=== PATIENT | female | born 1975 | race Two or more races ===

== ENCOUNTER → 2018-08-27 | Outpatient (CLI) | payer OTHER, SELFPAY ==
[2018-08-27 12:41] LABS: Hematocrit 37.8 % (37-47); Mean Corp Hgb Conc 34.4 g/gl (32-36); Mean Corpuscular Hgb 29.5 pg (27.0-32.0); Mean Corpuscular Volume 85.7 fL (81-99); Mean Platelet Vol. 9.6 fl (6.2-12.0); Platelet Count 293 K/mm3 (150-450); RBC Distribution Width SD 39.8 fl (35.1-43.9); Red Blood Count 4.41 M/mm3 (4.2-5.4); White Blood Count 8.1 K/mm3 (4.4-11.0)
[2018-08-27 12:42] LABS: Scan Indicated on CBC? Y/N NO
[2018-08-27 12:58] LABS: Hemoglobin A1c 5.8 % (4.2-6.3)
[2018-08-27 13:38] LABS: Free T3 2.4 pg/mL (2.18-3.98); T4 Free Direct 1.19 ng/dL (0.76-1.46); Thyroid Stim Hormone (TSH) 1.75 uIU/mL (0.358-3.74)
[2018-08-27 13:45] LABS: hCG Titer Quant., Serum < 1 mIU/mL (1-3)
== END | disposition home or self-care (01) ==
LOC: LAB 12:19
PROVIDERS: Family Provider Family Medicine; PCP Family Medicine; Referring Provider Obstetrics & Gynecology; Visit Provider Obstetrics & Gynecology
DX: N92.6 Irregular menstruation, unspecified (principal)
CPT/HCPCS: 36415; 83036; 84439; 84443; 84481; 84702; 85027

== ENCOUNTER → 2018-08-31 | Outpatient (CLI) | payer OTHER, SELFPAY ==
--- NOTE | 2018-08-31 13:51 | BI_ITS ---
MAMMOGRAPHY - BILATERAL SCREENING REASON FOR EXAM: Female, 42 years old. Routine annual screening examination. PERTINENT HISTORY: Non-contributory. TECHNIQUE: Digital bilateral breast main (3D mammographic acquisition) in the CC and MLO projections. 2-D mediolateral oblique (MLO) and craniocaudad (CC) views of both breasts were obtained. CAD: Full Field Digital Mammography with Computer Added Detection was performed. COMPARISON: None. Baseline examination. FINDINGS: Breast Composition: The breasts are extremely dense, which lowers the sensitivity of mammography. There are no dominant masses or suspicious calcifications. No other significant abnormalities are identified. BI/SCREEN MAMM (CAD) W/MAIN BILAT IMPRESSION: Negative screening mammogram. Yearly followup mammogram recommended. (A) ASSESSMENT CATEGORY: BIRADS Category 1: Negative. A letter regarding these results will be sent to the patient by the facility within 30 days. Approximately 10% of breast cancers are not detected by mammography. A normal mammogram should not delay biopsy of a clinically suspicious abnormality. [id number] Electronically Signed: Kervin Ortega, at 8:59 EDT , Service support ,
== END | disposition home or self-care (01) ==
LOC: OPBI 13:50
PROVIDERS: Family Provider Family Medicine; PCP Family Medicine; Referring Provider Obstetrics & Gynecology; Visit Provider Obstetrics & Gynecology
DX: Z12.31 Encounter for screening mammogram for malignant neoplasm of breast (principal)
CPT/HCPCS: 77063; 77067

== ENCOUNTER → 2018-09-12 | Outpatient (CLI) | payer SELFPAY ==
--- NOTE | 2018-09-12 10:33 | US_ITS ---
STUDY: ULTRASOUND OF THE FEMALE PELVIS - COMPLETE REASON FOR EXAM: Female, 42 years old. Vaginal bleeding LMP: 09/07/2018 TECHNIQUE: Transabdominal and Transvaginal TECHNICAL QUALITY: Adequate. COMPARISON: None. FINDINGS: The uterus is anteverted and is in a midline position. The uterus measures 6.7 x 4.3 x 2.1 cm. Some fluid in the endocervical canal. The endometrium measures 3 mm in thickness, and is hyperechoic. There is no demonstrated endometrial mass. There is no demonstrated myometrial mass. I.U.D. - The patient does not have an I.U.D. The right ovary is visualized. The right ovary measures 2.1 x 1.4 x 0.9 cm. There is no right ovarian cyst or ovarian mass. There is no visualized right adnexal mass or complex lesion. There is normal arterial and normal venous vascularity. The left ovary is non-visualized.. There is no fluid in the cul-de-sac. The pre void volume of the bladder was ml. The post void volume of the bladder was ml. Polycystic ovary disease: No. US/Pelvic (Non ) IMPRESSION: Normal female pelvis. Electronically Signed: Eusebio Roberts MD at 7:59 EDT Tel , Service support ,
--- NOTE | 2018-09-12 10:44 | US_ITS ---
STUDY: ULTRASOUND OF THE FEMALE PELVIS - COMPLETE REASON FOR EXAM: Female, 42 years old. Vaginal bleeding LMP: 09/07/2018 TECHNIQUE: Transabdominal and Transvaginal TECHNICAL QUALITY: Adequate. COMPARISON: None. FINDINGS: The uterus is anteverted and is in a midline position. The uterus measures 6.7 x 4.3 x 2.1 cm. Some fluid in the endocervical canal. The endometrium measures 3 mm in thickness, and is hyperechoic. There is no demonstrated endometrial mass. There is no demonstrated myometrial mass. I.U.D. - The patient does not have an I.U.D. The right ovary is visualized. The right ovary measures 2.1 x 1.4 x 0.9 cm. There is no right ovarian cyst or ovarian mass. There is no visualized right adnexal mass or complex lesion. There is normal arterial and normal venous vascularity. The left ovary is non-visualized.. There is no fluid in the cul-de-sac. The pre void volume of the bladder was ml. The post void volume of the bladder was ml. Polycystic ovary disease: No. US/Transvaginal Non- IMPRESSION: Normal female pelvis. Electronically Signed: Eusebio Roberts MD at 7:59 EDT Tel , Service support ,
== END | disposition home or self-care (01) ==
LOC: US 10:29
PROVIDERS: Family Provider Family Medicine; PCP Family Medicine; Referring Provider Obstetrics & Gynecology; Visit Provider Obstetrics & Gynecology
DX: N93.8 Other specified abnormal uterine and vaginal bleeding (principal)
CPT/HCPCS: 76830; 76856; 93976

== ENCOUNTER → 2019-08-25 | Outpatient (CLI) | payer BC, SELFPAY ==
[2019-08-27 20:07] LABS: Age Gdln ACOG Testing 30-65 (.)
[2019-08-27 21:19] LABS: HPV APTIMA, High Risk Negative (Negative)
[2019-08-27 21:20] LABS: HPV Reflexed? YES, CHARGE PATIENT
== END | disposition home or self-care (01) ==
PROVIDERS: Referring Provider Obstetrics & Gynecology; Visit Provider Obstetrics & Gynecology
DX: Z12.4 Encounter for screening for malignant neoplasm of cervix (principal)
CPT/HCPCS: 87624; 88175; G0145

== ENCOUNTER → 2019-09-07 | Outpatient (CLI) | payer BC, SELFPAY ==
--- NOTE | 2019-09-07 13:44 | BI_ITS ---
MAMMOGRAPHY - BILATERAL SCREENING REASON FOR EXAM: Female, 43 years old. Routine annual screening examination. PERTINENT HISTORY: Non-contributory. TECHNIQUE: Digital bilateral breast main (3D mammographic acquisition) in the CC and MLO projections. 2-D mediolateral oblique (MLO) and craniocaudad (CC) views of both breasts were obtained. CAD: Full Field Digital Mammography with Computer Added Detection was performed. COMPARISON: Comparison is made with prior examination dated August 31, 2018. FINDINGS: Breast Composition: The breasts are extremely dense, which lowers the sensitivity of mammography. There are no dominant masses or suspicious calcifications. No other significant abnormalities are identified. There has been no significant change since the prior study. BI/SCREEN MAMM (CAD) W/MAIN BILAT IMPRESSION: Stable bilateral screening mammogram. Yearly follow-up mammogram recommended. (A) ASSESSMENT CATEGORY: BIRADS Category 1: Negative. A letter regarding these results will be sent to the patient by the facility within 30 days. Approximately 10% of breast cancers are not detected by mammography. A normal mammogram should not delay biopsy of a clinically suspicious abnormality. [id number] Electronically Signed: Kervin Ortega, at 15:01 EDT , Service support ,
== END | disposition home or self-care (01) ==
LOC: OPBI 13:42
PROVIDERS: Referring Provider Obstetrics & Gynecology; Visit Provider Obstetrics & Gynecology
DX: Z12.31 Encounter for screening mammogram for malignant neoplasm of breast (principal)
CPT/HCPCS: 77063; 77067

== ENCOUNTER → 2020-04-07 | Outpatient (CLI) | payer OTHER, SELFPAY ==
--- NOTE | 2020-04-07 | LES_PTH ---
PATIENT: MADELINE LANDERS LOC: [facility] U#:[id number] AGE/SX: 44/F ROOM: RE04/07/[address]: Dr. Kaley Dunaway MD : 1975 BED: DIS: 04/07/2020 SPEC #: [id number] RECD: 04/07/20 17:34 STATUS: GULSHAN ISIDRO #: [id number] GENNARO: 04/07/20 00:[address]: Kaley Dunaway DEPT: SURGICAL PATHOLOGY RECD BY: Sandip Roberts Tissues: Skin of eyelid, NOS Procedures: Surgery Specimen Level IV HEADER OPERATION: Shave biopsy PRE-OP DIAGNOSIS: Growing lesions TISSUE SUBMITTED: 5 mm shave biopsy right postauricular area MICROSCOPIC DIAGNOSIS Skin lesion, right postauricular area, shave biopsy: Polypoid intradermal nevus. AM:ellen 04/11/2020 MICROSCOPIC DESCRIPTION Slides are reviewed. GROSS DESCRIPTION Received is one container labeled with the patient's name and not further designated. The specimen consists of a polypoid piece of wheeler-white skin measuring 0.8 x 0.5 x 0.4 cm. The specimen is inked, bisected and submitted entirely in one cassette. / SJ:ellen 04/10/20 TC:5 CPT: 91298
== END | disposition home or self-care (01) ==
LOC: LABSPEC 14:12
PROVIDERS: PCP Family Medicine; Visit Provider Family Medicine
DX: L98.9 Disorder of the skin and subcutaneous tissue, unspecified (principal)
CPT/HCPCS: 88305

== ENCOUNTER → 2020-09-12 13:43 | Outpatient (CLI) | payer OTHER, SELFPAY ==
--- NOTE | 2020-09-12 13:46 | BI_ITS ---
MAMMOGRAPHY - BILATERAL SCREENING REASON FOR EXAM: Female, 44 years old. Routine annual screening examination. PERTINENT HISTORY: Non-contributory. TECHNIQUE: Digital bilateral breast main (3D mammographic acquisition) in the CC and MLO projections. 2-D mediolateral oblique (MLO) and craniocaudad (CC) views of both breasts were obtained. CAD: Full Field Digital Mammography with Computer Added Detection was performed. COMPARISON: Comparison is made with prior study dated 09/07/2019 and 08/31/2018. FINDINGS: Breast Composition: The breasts are extremely dense, which lowers the sensitivity of mammography. There are no dominant masses or suspicious calcifications. No other significant abnormalities are identified. There has been no significant change since the prior study. BI/SCRN MAMM (CAD)W/MAIN BILAT IMPRESSION: Stable bilateral screening mammogram. Yearly follow-up mammogram recommended. (A) ASSESSMENT CATEGORY: BIRADS Category 1: Negative. A letter regarding these results will be sent to the patient by the facility within 30 days. Approximately 10% of breast cancers are not detected by mammography. A normal mammogram should not delay biopsy of a clinically suspicious abnormality. [id number] Electronically Signed: Kervin Ortega MD at 14:42 EDT , Service support ,
== END ==
PROVIDERS: PCP Family Medicine; Referring Provider Student in an Organized Health Care Education/Training Program; Visit Provider Student in an Organized Health Care Education/Training Program
DX: Z12.31 Encounter for screening mammogram for malignant neoplasm of breast (principal)
CPT/HCPCS: 77063; 77067

== ENCOUNTER → 2021-02-03 07:06 | Outpatient (CLI) | payer OTHER, SELFPAY ==
[2021-02-03 08:16] LABS: Cholesterol 162 mg/dL (200); Glucose 91 mg/dL (74-106); High Density Lipoprotein 61 mg/dL; Thyroid Stim Hormone (TSH) 2.05 uIU/mL (0.358-3.74); Triglycerides 81 mg/dL; Very Low Density Lipoprotein 16 mg/dL (5-40)
== END ==
PROVIDERS: PCP Family Medicine; Referring Provider Family Medicine; Visit Provider Family Medicine
DX: Z00.00 Encounter for general adult medical examination without abnormal findings (principal); R53.83 Other fatigue
CPT/HCPCS: 36415; 80061; 82947; 84443

== ENCOUNTER 2021-04-30 18:25 | Outpatient (CLI) | payer OTHER, SELFPAY | END 2021-04-30 23:59 | disposition short-term general hospital (02) | PROVIDERS: PCP Family Medicine; Referring Provider Family Medicine; Visit Provider Family Medicine | DX: Z20.822 Contact with and (suspected) exposure to COVID-19 (principal) | CPT/HCPCS: 87635; U0003; U0005 ==

== ENCOUNTER → 2021-09-19 | Outpatient (CLI) | payer OTHER, SELFPAY ==
--- NOTE | 2021-09-19 15:09 | BI_ITS ---
MAMMOGRAPHY - BILATERAL SCREENING REASON FOR EXAM: Female, 45 years old. Routine annual screening examination. PERTINENT HISTORY: Non-contributory. TECHNIQUE: Digital bilateral breast main (3D mammographic acquisition) in the CC and MLO projections. 2-D mediolateral oblique (MLO) and craniocaudad (CC) views of both breasts were obtained. CAD: Full Field Digital Mammography with Computer Added Detection was performed. COMPARISON: Comparison with mammogram from 09/12/2020, 09/07/2019, 08/31/2018. FINDINGS: Breast Composition: The breasts are extremely dense, which lowers the sensitivity of mammography. There are no dominant masses or suspicious calcifications. No other significant abnormalities are identified. There has been no significant change since the prior study. BI/SCRN MAMM (CAD)W/MAIN BILAT IMPRESSION: Stable bilateral screening mammogram. Yearly follow-up mammogram recommended. (A) ASSESSMENT CATEGORY: BIRADS Category 1: Negative. A letter regarding these results will be sent to the patient by the facility within 30 days. Approximately 10% of breast cancers are not detected by mammography. A normal mammogram should not delay biopsy of a clinically suspicious abnormality. [id number] Electronically Signed: Anival Miguel, at 11:03 EDT ,
== END | disposition home or self-care (01) ==
LOC: OPBI 15:07
PROVIDERS: PCP Family Medicine; Visit Provider Student in an Organized Health Care Education/Training Program
DX: Z12.31 Encounter for screening mammogram for malignant neoplasm of breast (principal)
CPT/HCPCS: 77063; 77067

== ENCOUNTER → 2022-09-24 | Outpatient (CLI) | payer OTHER, SELFPAY ==
--- NOTE | 2022-09-24 16:00 | BI_ITS ---
MAMMOGRAPHY - BILATERAL SCREENING REASON FOR EXAM: Female, 46 years old. Routine annual screening examination. PERTINENT HISTORY: Non-contributory. TECHNIQUE: Digital bilateral breast main (3D mammographic acquisition) in the CC and MLO projections. 2-D mediolateral oblique (MLO) and craniocaudad (CC) views of both breasts were obtained. CAD: Full Field Digital Mammography with Computer Added Detection was performed. COMPARISON: Comparison is made with prior study September 19, 2021 and September 12, 2020. FINDINGS: Breast Composition: The breasts are extremely dense, which lowers the sensitivity of mammography. There are no dominant masses or suspicious calcifications. No other significant abnormalities are identified. There has been no significant change since the prior study. BI/SCRN MAMM (CAD)W/MAIN BILAT IMPRESSION: Stable bilateral screening mammogram. Yearly follow-up mammogram recommended. (A) ASSESSMENT CATEGORY: BIRADS Category 1: Negative. A letter regarding these results will be sent to the patient by the facility within 30 days. Approximately 10% of breast cancers are not detected by mammography. A normal mammogram should not delay biopsy of a clinically suspicious abnormality. [id number] Electronically Signed: Kervin Ortega MD at 8:34 EDT ,
== END | disposition home or self-care (01) ==
LOC: OPBI 15:58
PROVIDERS: PCP Family Medicine; Referring Provider Student in an Organized Health Care Education/Training Program; Visit Provider Student in an Organized Health Care Education/Training Program
DX: Z12.31 Encounter for screening mammogram for malignant neoplasm of breast (principal)
CPT/HCPCS: 77063; 77067

== ENCOUNTER 2023-04-14 05:51 | Day surgery (SDC) | payer OTHER, SELFPAY ==
--- OUTSIDE RECORDS SUMMARY | 2023-04-14 06:00 | XMS RPT_ITS | CCD ---
Author Name Unknown Address [address] [place] [address] Organization [facility] Care Team Providers Care Day Care Worker Name Role Phone KALEY DUNAWAY Primary Care Unavailable MECCA KLINE Attending Unavaila Kaley Don Primary Care Provider Unavailab KALEY Dasilva Primary Care Unavailable DIANE GOINS Attending Unavaillilly e Medications Current Medications Medication Drug Class(es) Dates Sig (Normalized) Sig (Original) 21 day ethinyl estradiol 0.501949 mg/hr / etonogestrel 0.005 mg/hr vaginal ring (2 sources) Progestin, Estrogen Start: 07-15-2019 etonogestreL-ethi nyl estradioL (NUVARING) 0.12-0.015 mg/24 hr vaginal ring INSERT 1 RING VAGINALLY FOR 21 DAYS OUT FOR 7 AND REPEAT 0 07/15/2019 Active Ethinyl Estradiol / Ferrous fumarate / Norethindrone (2 sources) Estrogen take 1 tablet by mouth once daily norethindrone-eth inyl estradiol-ferrous fumarate (LOESTIN 24 FE) 1 mg-20 mcg (24)/75 mg (4) per tablet Take 1 tablet by mouth daily. 0 Active montelukast 10 mg oral tablet (2 sources) Leukotriene Receptor Antagonist Start: 07-26-2019 take 1 tablet by mouth once daily montelukast (SINGULAIR) 10 mg tablet Take 10 mg by mouth daily . 0 07/26/2019 Active Completed/Discontinued Medications Medication Drug Class(es) Dates Sig (Normalized) Sig (Original) Sodium Chloride (1 source) Start: 08-13-2019 End: 08-13-2019 sodium chloride (PF) (NS) flush 5 mL Problems Problem Classification Problem Date Documented Da te Episodic/Chronic Abdominal pain (3 sources) Right lower quadrant pain; Translations: [Generalized abdominal pain] Episodic Nausea and vomiting (1 source) Nausea; Translations: [Nausea] Episodic Other gastrointestinal disorders (1 source) Abdominal bloating; Translations: [Bloated abdomen] Episodic Results Test Name Value Interpretation Reference Range Facil ity Vital Signs Date Time Vital Sign Value Performing Clinician Yung murphy 08-13-2019 17:51-0400 BP Diastolic 65 mm[Hg] Dianerusty Goins 08-13-2019 17:51-0400 BP Systolic 132 mm[Hg] Diane Goins 08-13-2019 17:51-0400 Pulse (Heart Rate) 74 /min Diane Goins 08-13-2019 17:51-0400 Pulse Oximetry 99 % Dianerusty Goins 08-13-2019 17:51-0400 Respiratory Rate 14 /min Dianerusty Goins 08-13-2019 15:48-0400 BMI (Body Mass Index) 22.6 kg/m2 Dianerusty Goins 08-13-2019 15:48-0400 Body Temperature 99.39 [degF] Dianerusty Goins 08-13-2019 15:48-0400 Body weight 63.5 kg Dianerusty Goins 08-13-2019 15:48-0400 Height 167.6 cm Dianerusty Goins 08-13-2019 14:40-0400 BMI (Body Mass Index) 22.6 kg/m2 Meccamisael Kline [facility] 08-13-2019 14:40-0400 Body Temperature 99.39 [degF] Mecca [facility] 08-13-2019 14:40-0400 Body weight 63.5 kg Mecca [facility] 08-13-2019 14:40-0400 Height 167.6 cm [facility] 08-13-2019 14:40-0400 Pulse (Heart Rate) 98 /min [facility] 08-13-2019 14:40-0400 Pulse Oximetry 98 % [facility] 08-13-2019 14:40-0400 Respiratory Rate 16 /min [facility] Encounters Encounter Date Encounter Type Care Provider Facility Start: 08-13-2019 End: 08-13-2019 Emergency department patient visit [facility] Start: 08-13-2019 End: 08-13-2019 Patient encounter procedure [facility] Start: 08-13-2019 End: 08-13-2019 Emergency department patient visit Diane Marin Goins Work Phone: [facility] Emergency Department Procedures Date Procedure Procedure Detail Performing Clinician Start: 08-13-2019 Basic metabolic 2000 panel - Serum or Plasma Work Phone: Start: 08-13-2019 Choriogonadotropin.b eta subunit ( test) [Presence] in Serum or Plasma Work Phone: Start: 08-13-2019 Complete blood count with white cell differential, automated Work Phone: Start: 08-13-2019 Complete blood count with white cell differential, manual Work Phone: Start: 08-13-2019 Hepatic function 200 0 panel - Serum or Plasma Work Phone: Start: 08-13-2019 LAVENDER TOP Diane Gorman Goins Work Phone: Start: 08-13-2019 LIGHT BLUE TOP Diane Tomas Goins Work Phone: Start: 08-13-2019 Lipase [Enzymatic activity/volume] in Serum or Plasma Work Phone: Start: 08-13-2019 MINT GREEN TOP Diane Tomas Goins Work Phone: Start: 08-13-2019 RAINBOW DRAW Diane Mcgregor Work Phone: Start: 08-13-2019 Urinalysis Work Phone: Start: 08-13-2019 URINE CONTAINER Diane Tomas Goins Work Phone: Plan of Treatment Date Care Activity Detail Author Start: 11-30-2019 Influenza vaccination given Se quential Influenza Vaccine (Season Ended) Start: 1980 History and physical examination, annual for health maintenance Wellness Visit Start: 1977 Screening for malign ant neoplasm of cervix Pap Smear Start: 1977 Screening mammography [facility] Start: 1977 Tetanus vaccination Tetanus: Every [address] Abdomen Pelvis Wi th IV Contrast Only CT Abdomen Pelvis With IV Contrast Only Imaging [facility] 08/13/2019 5:25 PM EDT Payers Date Payer Category Payer Unknown [id number] 2018 Unknown JOJO BCBS OUT OF STATE [facility] xxxxxxxxxxxx 2018-Present xxxxxxxxxxxx [id number] 1975 Unknown [id number] 1975 Unknown [id number] Social History Date Type Detail Facility Start: 08-13-2019 Tobacco smoking status NHIS Never sm oker Start: 08-13-2019 Alcohol intake Current drinke r of alcohol (finding) Start: 07-19-2016 Alcohol Comment occassional [facility] Sex Assigned At Not on file [facility] Exposure to SARS-CoV -2 (event) Not sure Summary Purpose Family History No Family History Records FoundNo Family History Records Found Advance Directives No Advanced Directives Records FoundDocuments on File Type Date 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 * Abdominal Pain (Citizen Of [place]) documented in this encounter Assessments Diagnosis RLQ abdominal pain Abdominal pain, right lower quadrant Diagnosis Generalized abdominal pain Abdominal pain, generalized Abdominal pain, RLQ Nausea Nausea alone Bloated abdomen Flatulence, eructation, and gas pain Instructions * Patient Instructions* Mecca Kline PA-C - 08/13/2019 3:13 PM EDT Madeline, Go straight to the Main [facility] ED in [place]; Nothing to eat or drink prior to arrival. Although you are stable to drive yourself to the ED at this time, any worsening symptoms, pull overto the side of the road in a safe area and dial 911. Abdominal Pain: Care Instructions Your Care Instructions Abdominal pain has many possible causes. Some aren't serious and get better on their own in a few days. Others need more testing and treatment. If your pain continues or gets worse, you need to be rechecked and may need more tests to find out what is wrong. You may need surgery to correct the problem. Don't ignore new symptoms, such as fever, nausea and vomiting, urination problems, pain that gets worse, and dizziness. These may be signs of a more serious problem. Your doctor may have recommended a follow-up visit in the next 8 to 12 hours. If you are not getting better, you may need more tests or treatment. The doctor has checked you carefully, but problems can develop later. If you notice any problems ornew symptoms, get medical treatment right away. Follow-up care is a dumont part of your treatment and safety. Be sure to make and go to all appointments, and call your doctor if you are having problems. It's also a good idea to know your test resultsand keep a list of the medicines you take. How can you care for yourself at home? Rest until you feel better. To prevent dehydration, drink plenty of fluids, enough so that your urine is light yellow or clear like water. Choose water and other caffeine-free clear liquids until you feel better. If you have kidney, heart, or liver disease and have to limit fluids, talk with your doctor before you increase the amount of fluids you drink. If your stomach is upset, eat mild foods, such as rice, dry toast or crackers, bananas, and applesauce. Try eating several small meals instead of two or three large ones. Wait until 48 hours after all symptoms have gone away before you have spicy foods, alcohol, and drinks that contain caffeine. Do not eat foods that are high in fat. Avoid anti-inflammatory medicines such as aspirin, ibuprofen (Advil, Motrin), and naproxen (Aleve).These can cause stomach upset. Talk to your doctor if you take daily aspirin for another health problem. When should you call for help? Call 911 anytime you think you may need emergency care. For example, call if: You passed out (lost consciousness). You pass maroon or very bloody stools. You vomit blood or what looks like coffee grounds. You have new, severe belly pain. Call your doctor now or seek immediate medical care if: Your pain gets worse, especially if it becomes focused in one area of your belly. You have a new or higher fever. Your stools are black and look like tar, or they have streaks of blood. You have unexpected vaginal bleeding. You have symptoms of a urinary tract infection. These may include: ? Pain when you urinate. ? Urinating more often than usual. ? Blood in your urine. You are dizzy or lightheaded, or you feel like you may faint. Watch closely for changes in your health, and be sure to contact your doctor if: You are not getting better after 1 day (24 hours). Where can you learn more? Log into your personal health record on https://eyeSight [employer]Mobilygen and enter E907 in the Education box to learn more about Abdominal Pain: Care Instructions. Current as of: September 23, 2018 Content Version: 12.3 7662-1767 Register My Info. Care instructions adapted under license by your healthcare professional. If you have questions about a medical condition or this instruction, always ask your healthcare professional. Register My Info disclaims any warranty or liability for your use of this information. documented in this encounter History of Present Illness * Mecca Kline PA-C - 08/13/2019 2:47 PM EDT Patient Name: Urgent Care Location: Madeline Granado [address] [place] [id number] Date Of : Date Of Visit: 1975 08/13/2019 MRN# Provider: [id number] Mecca Kline PA-C Chief Complaint Patient presents with Abdominal Pain cramping abdominal pain / lower cramping with constipation... cramping worse after eating Assessment & Plan 1. Generalized abdominal pain 2. Abdominal pain, RLQ 3. Nausea 4. Bloated abdomen Return if symptoms worsen or fail to improve. Medical Decision Making Abd pain, nausea, RLQ abd pain, temp of 99.5; Pt's abd is distended, diffuse tender from umbilicus down and has rebound; appears to be poss appy.Distention mid abd ? Bowel, ovary, other etiology; no hx of bowel obstruction; she has no abd psh. Pt needs higher level of care -- sent to [facility] for further eval and care. Urgent Care Brief Evaluation Form Patient Transfer to ED without Admit to Urgent Care Date: 08/13/19 Time: 3:19 PM Name: Madeline Granado : 1975 [id number] - (Managed Care) [address] [place] [address] (home) Madeline Granado [facility] with Abdominal Pain (cramping abdominal pain / lower cramping with constipation... cramping worse after eating ) . Pulse 98 Temp 99.4 F (37.4 C) Resp 16 Ht 5' 6 Wt 63.5 kg (140 lb) LMP 07/25/2019 (Approximate) SpO2 98% BMI 22.60 kg/m Allergies: no known allergies. Madeline Granado has a current medication list which includes the following prescription(s): etonogestrel-ethinyl estradiol, montelukast, and norethindrone- ethinyl estradiol-ferrous fumarate. Madeline Granado has a past medical history of Asthma. Madeline Granado was seen by Mecca Kline PA-C and is being transferred to [facility] Madeline Granado being transported via [employer] (Self). The primary encounter diagnosis was Generalized abdominal pain. Diagnoses of Abdominal pain, RLQ, Nausea, and Bloated abdomen were also pertinent to this visit. Discussion Regarding Transfer: yes Transfer Center Called; yes ED Called; no Additional Comments: nontraumatic abd pain, abd distension, rlq rebound, temp of 99.5; sent for higher level of care to [facility]. Mecca Kline PA-C 08/13/19 Additional Clinical Comments ED Transfer - Recommended further evaluation and treatment at the emergency room. Discussed personal transport vs EMS. [facility] COVID-19 Mask Status: Does the patient have classic COVID-19 symptoms? No, the patient does not have COVID-19 symptoms, the patient WAS wearing a mask during the visit and I (the provider) WAS wearing a mask during the visit. The provider was wearing gloves during visit. Subjective 43 y.o. female presents with Abdominal Pain (cramping abdominal pain / lower cramping with constipation... cramping worse after eating ) The pt presents with c/o 5 days of noted pain funky ; had popcorn, then started feeling nauseated.Pt had ground [place] with onions potatoes milk before onset of symptoms on Friday. This lasted fri-Friday. No emesis.Took excedrin migraine, headache, nausea went away; had abd cramping periodically through Friday afternoon. Friday morning, every time she eats lower pelvic/abd cramps. Now it is R lower abd; There is some radiation to side of abd, not back. No abd PSH. No abnl vag dc or bleeding. Pt admits to feeling constipated for a week, small bms, not big ones. Not eating as usual over past week. No abd/ pelvic hx. Pt is one partner, male; no painful intercourse. No std/sti hx---- does, pt does not know what this is. 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 NO KNOWN EXP TO SUSP OR POS COVID IN PAST 14 DAYS. NO SOB, DOC TEMP, ETC. Abdominal Pain This is a new problem. The current episode started in the past 7 days. The onset quality is gradual. The problem occurs constantly. The problem has been gradually worsening. The pain is located in the generalized abdominal region and RLQ. The pain is at a severity of 6/10. The pain is moderate. Thequality of the pain is cramping. Associated symptoms include constipation. Pertinent negatives include no anorexia, arthralgias, belching, diarrhea, dysuria, fever, flatus, frequency, headaches, hematochezia, hematuria, melena, myalgias, nausea, vomiting or weight loss. The pain is aggravated by eating. The pain is relieved by nothing. She has tried nothing for the symptoms. The treatment provided no relief. Prior workup: none. There is no history of abdominal surgery, colon cancer, Crohn's disease, gallstones, GERD, irritable bowel syndrome, pancreatitis, PUD or ulcerative colitis. Review Of Systems Review of Systems Constitutional: Positive for appetite change. Negative for activity change, chills, diaphoresis, fatigue, fever, unexpected weight change and weight loss. HENT: Negative for congestion, dental problem, drooling, ear discharge, ear pain, facial swelling, hearing loss, mouth sores, nosebleeds, postnasal drip, rhinorrhea, sinus pressure, sinus pain, sneezing, sore throat, tinnitus, trouble swallowing and voice change. Eyes: Negative for photophobia, pain, discharge, redness and visual disturbance. Respiratory: Negative for cough, choking, chest tightness, shortness of breath, wheezing and stridor. Cardiovascular: Negative for chest pain, palpitations and leg swelling. Gastrointestinal: Positive for abdominal pain and constipation. Negative for abdominal distention, anorexia, blood in stool, diarrhea, flatus, hematochezia, melena, nausea and vomiting. Genitourinary: Negative for decreased urine volume, difficulty urinating, dysuria, flank pain, frequency, genital sores, hematuria, menstrual problem, pelvic pain, vaginal bleeding, vaginal dischargeand vaginal pain. Musculoskeletal: Negative for arthralgias, back pain, gait problem, joint swelling, myalgias, neck pain and neck stiffness. Skin: Negative for rash. Neurological: Negative for dizziness, seizures, syncope, speech difficulty, weakness, light-headedness, numbness and headaches. Hematological: Negative for adenopathy. Does not bruise/bleed easily. Medical History Past Medical History: Diagnosis Date Asthma There is no problem list on file for this patient. Social History Social History Socioeconomic History Marital status: Spouse name: Not on file Number of children: Not on file Years of education: Not on file Highest education level: Not on file Occupational History Not on file Social Needs Financial resource strain: Not on file Food insecurity Worry: Not on file Inability: Not on file Transportation needs Medical: Not on file Non-medical: Not on file Tobacco Use Smoking status: Never Smoker Smokeless tobacco: Never Used Substance and Sexual Activity Alcohol use: Yes Comment: occassional Drug use: No Sexual activity: Not on file Lifestyle Physical activity Days per week: Not on file Minutes per session: Not on file Stress: Not on file Relationships Social connections Talks on phone: Not on file Gets together: Not on file Attends moravian service: Not on file Active member of club or organization: Not on file Attends meetings of clubs or organizations: Not on file Relationship status: Not on file Other Topics Concern Not on file Social History Narrative Not on file Family History History reviewed. No pertinent family history. Objective Physical Exam Pulse 98 Temp 99.4 F (37.4 C) Resp 16 Ht 5' 6 Wt 63.5 kg (140 lb) LMP 07/25/2019 (Approximate) SpO2 98% BMI 22.60 kg/m Vision/Hearing Exam:No exam data present Physical Exam Vitals signs and nursing note reviewed. Exam conducted with a power originator present. Constitutional: General: She is not in acute distress. Appearance: Normal appearance. She is not ill-appearing, toxic-appearing or diaphoretic. HENT: Head: Normocephalic and atraumatic. Nose: Nose normal. Mouth/Throat: Mouth: Mucous membranes are moist. Comments: The patient handles her own oral secretions well; no drooling, tripoding, stridor, trismus, speech dyspnea, painful or abnormal respirations. Uvula and tongue are midline without edema. Lips and fingertips acyanotic. No evidence of tons abscess or ludwigs angina. slpac Eyes: General: No scleral icterus. Right eye: No discharge. Extraocular Movements: Extraocular movements intact. Conjunctiva/sclera: Conjunctivae normal. Neck: Musculoskeletal: No neck rigidity or muscular tenderness. Cardiovascular: Rate and Rhythm: Normal rate and regular rhythm. Pulses: Normal pulses. Heart sounds: Normal heart sounds. No murmur. No friction rub. No gallop. Pulmonary: Effort: Pulmonary effort is normal. No respiratory distress. Breath sounds: Normal breath sounds. No stridor. No wheezing, rhonchi or rales. Abdominal: General: There is distension. Palpations: Abdomen is soft. Tenderness: There is abdominal tenderness. There is guarding. There is no right CVA tenderness or left CVA tenderness. Comments: Decreased bowel sounds, difficult to hear despite multiple attempts. ? Distention vs mass; needs higher level of care. + fmhx of kidney stone--dad; no pmh of nephrolithiasis. Musculoskeletal: General: No swelling, tenderness, deformity or signs of injury. Right lower leg: No edema. Left lower leg: No edema. Lymphadenopathy: Cervical: No cervical adenopathy. Skin: General: Skin is warm and dry. Capillary Refill: Capillary refill takes 2 to 3 seconds. Coloration: Skin is not jaundiced or pale. Findings: No bruising, erythema, lesion or rash. Neurological: General: No focal deficit present. Mental Status: She is alert and oriented to person, place, and time. Mental status is at baseline. Cranial Nerves: No cranial nerve deficit. Motor: No weakness. Coordination: Coordination normal. Psychiatric: Mood and Affect: Mood normal. Behavior: Behavior normal. Thought Content: Thought content normal. Judgment: Judgment normal. Procedure Notes Procedures Results No results found for this or any previous visit (from the past 168 hour(s)). No orders to display Orders Placed This Visit No orders of the defined types were placed in this encounter. Medication List At End Of Visit Current Outpatient Medications Medication Sig Dispense Refill etonogestreL-ethinyl estradioL (NUVARING) 0.12-0.015 mg/24 hr vaginal ring INSERT 1 RING VAGINALLY FOR 21 DAYS OUT FOR 7 AND REPEAT montelukast (SINGULAIR) 10 mg tablet Take 10 mg by mouth daily . norethindrone-ethinyl estradiol-ferrous fumarate (LOESTIN 24 FE) 1 mg-20 mcg (24)/75 mg (4) per tablet Take 1 tablet by mouth daily. No current facility-administered medications for this visit. Patient Instructions Madeline, Go straight to the [facility] ED in [place]; Nothing to eat or drink prior to arrival. Although you are stable to drive yourself to the ED at this time, any worsening symptoms, pull overto the side of the road in a safe area and dial 911. Abdominal Pain: Care Instructions Your Care Instructions Abdominal pain has many possible causes. Some aren't serious and get better on their own in a few days. Others need more testing and treatment. If your pain continues or gets worse, you need to be rechecked and may need more tests to find out what is wrong. You may need surgery to correct the problem. Don't ignore new symptoms, such as fever, nausea and vomiting, urination problems, pain that gets worse, and dizziness. These may be signs of a more serious problem. Your doctor may have recommended a follow-up visit in the next 8 to 12 hours. If you are not getting better, you may need more tests or treatment. The doctor has checked you carefully, but problems can develop later. If you notice any problems ornew symptoms, get medical treatment right away. Follow-up care is a dumont part of your treatment and safety. Be sure to make and go to all appointments, and call your doctor if you are having problems. It's also a good idea to know your test resultsand keep a list of the medicines you take. How can you care for yourself at home? Rest until you feel better. To prevent dehydration, drink plenty of fluids, enough so that your urine is light yellow or clear like water. Choose water and other caffeine-free clear liquids until you feel better. If you have kidney, heart, or liver disease and have to limit fluids, talk with your doctor before you increase the amount of fluids you drink. If your stomach is upset, eat mild foods, such as rice, dry toast or crackers, bananas, and applesauce. Try eating several small meals instead of two or three large ones. Wait until 48 hours after all symptoms have gone away before you have spicy foods, alcohol, and drinks that contain caffeine. Do not eat foods that are high in fat. Avoid anti-inflammatory medicines such as aspirin, ibuprofen (Advil, Motrin), and naproxen (Aleve).These can cause stomach upset. Talk to your doctor if you take daily aspirin for another health problem. When should you call for help? Call 911 anytime you think you may need emergency care. For example, call if: You passed out (lost consciousness). You pass maroon or very bloody stools. You vomit blood or what looks like coffee grounds. You have new, severe belly pain. Call your doctor now or seek immediate medical care if: Your pain gets worse, especially if it becomes focused in one area of your belly. You have a new or higher fever. Your stools are black and look like tar, or they have streaks of blood. You have unexpected vaginal bleeding. You have symptoms of a urinary tract infection. These may include: ? Pain when you urinate. ? Urinating more often than usual. ? Blood in your urine. You are dizzy or lightheaded, or you feel like you may faint. Watch closely for changes in your health, and be sure to contact your doctor if: You are not getting better after 1 day (24 hours). Where can you learn more? Log into your personal health record on https://eyeSight Mobile [email or web address] and enter E907 in the Education box to learn more about Abdominal Pain: Care Instructions. Current as of: September 23, 2018 Content Version: 12.3 1229-1464 Register My Info. Care instructions adapted under license by your healthcare professional. If you have questions about a medical condition or this instruction, always ask your healthcare professional. Register My Info disclaims any warranty or liability for your use of this information. documented in this encounter Additional Source Comments INFORMATION SOURCE (unrecogn ized section and content) DATE CREATED AUTHOR AUTHOR'S ORGANIZ ATION [facility] Reason for Visit (unrecogniz ed section and content) Reason Comments Abdominal Pain cramping abdominal p ain / lower cramping with constipation... cramping worse after eating Day, MISHA Kan - 08/13/2019 5:11 PM EDCy Tran RN - 08/13/2019 4:10 PM Cy Pierre RN - 08/13/2019 3:50 PM Cy Pierre RN - 08/13/2019 3:45 PM EDT ED Notes (unrecognized secti on and content) ED PROVIDER NOTE [facility] EMERGENCY DEPARTMENT NAME: Madeline Granado AGE: 43 y.o. : 1975 VISIT DATE: 08/13/2019 CSN: [id number] PCP: Kaley Dunaway MD Chief Complaint Patient presents with Abdominal Pain 5 DAYS Nausea Patient c/o lower pelvic pain for about 1 week On/off RLQ Some nausea No vomiting No fever/chills Some constipation No urinary s.sx No vaginal d/c or concern for History provided by: Patient Abdominal Pain Past Medical History: Diagnosis Date Asthma No past surgical history on file. No family history on file. Social History Socioeconomic History Marital status: Spouse name: Not on file Number of children: Not on file Years of education: Not on file Highest education level: Not on file Occupational History Not on file Social Needs Financial resource strain: Not on file Food insecurity Worry: Not on file Inability: Not on file Transportation needs Medical: Not on file Non-medical: Not on file Tobacco Use Smoking status: Never Smoker Smokeless tobacco: Never Used Substance and Sexual Activity Alcohol use: Yes Comment: occassional Drug use: No Sexual activity: Not on file Lifestyle Physical activity Days per week: Not on file Minutes per session: Not on file Stress: Not on file Relationships Social connections Talks on phone: Not on file Gets together: Not on file Attends moravian service: Not on file Active member of club or organization: Not on file Attends meetings of clubs or organizations: Not on file Relationship status: Not on file Other Topics Concern Not on file Social History Narrative Not on file Previous Medications Medication Sig etonogestreL-ethinyl estradioL (NUVARING) 0.12-0.015 mg/24 hr vaginal ring INSERT 1 RING VAGINALLY FOR 21 DAYS OUT FOR 7 AND REPEAT montelukast (SINGULAIR) 10 mg tablet Take 10 mg by mouth daily . norethindrone-ethinyl estradiol-ferrous fumarate (LOESTIN 24 FE) 1 mg-20 mcg (24)/75 mg (4) per tablet Take 1 tablet by mouth daily. No Known Allergies Review of Systems Gastrointestinal: Positive for abdominal pain. All other systems reviewed and are negative. Patient Vitals for the past 24 hrs: BP Temp Temp src Pulse Resp SpO2 Height Weight 08/13/19 1551 82 08/13/19 1548 (!) 166/82 99.4 F (37.4 C) Oral 98 16 98 % 5' 6 63.5 kg (140 lb) Physical Exam Vitals signs and nursing note reviewed. Constitutional: Appearance: She is normal weight. HENT: Head: Normocephalic. Nose: Nose normal. Mouth/Throat: Lips: [place]. Mouth: Mucous membranes are moist. Eyes: Extraocular Movements: Extraocular movements intact. Conjunctiva/sclera: Conjunctivae normal. Cardiovascular: Rate and Rhythm: Normal rate and regular rhythm. Pulses: Normal pulses. Heart sounds: Normal heart sounds. Pulmonary: Effort: Pulmonary effort is normal. Breath sounds: Normal breath sounds and air entry. Abdominal: General: Bowel sounds are normal. There is no distension. Palpations: Abdomen is soft. Tenderness: There is no abdominal tenderness. There is no right CVA tenderness, left CVA tenderness, guarding or rebound. Negative signs include Lu's sign and McBurney's sign. Skin: General: Skin is warm. Capillary Refill: Capillary refill takes less than 2 seconds. Neurological: General: No focal deficit present. Mental Status: She is alert and oriented to person, place, and time. Cranial Nerves: Cranial nerves are intact. Gait: Gait is intact. Psychiatric: Attention and Perception: Attention normal. Mood and Affect: Mood normal. Speech: Speech normal. Behavior: Behavior normal. Thought Content: Thought content normal. Cognition and Memory: Cognition normal. Judgment: Judgment normal. Laboratory & Radiographic Imaging (if done): Results for orders placed or performed during the hospital encounter of 08/13/19 BMP Result Value Ref Range Sodium 140 135 - 145 mmol/L Potassium 3.3 (L) 3.5 - 5.1 mmol/L Chloride 108 98 - 108 mmol/L Bicarbonate 25 21 - 32 mmol/L Anion Gap 10 10 - 20 mmol/L Glucose 93 65 - 99 mg/dL BUN 13 8 - 25 mg/dL Creatinine 0.88 0.40 - 1.10 mg/dL eGFR 82 >=60 mL/min/1.73 m2 BUN/Creatinine Ratio 14.8 10.0 - 20.0 Calcium 8.5 8.4 - 10.2 mg/dL Hepatic Function Panel (LFT) Result Value Ref Range Total Protein 7.3 6.0 - 8.0 g/dL Albumin 3.8 3.2 - 5.2 g/dL Total Bilirubin 0.4 0.0 - 1.3 mg/dL Bilirubin, Direct <0.1 0.0 - 0.4 mg/dL Alkaline Phosphatase 52 40 - 150 U/L AST 13 0 - 45 U/L ALT 17 14 - 65 U/L Lipase Result Value Ref Range Lipase 103 73 - 393 U/L HCG (QUALITATIVE) Result Value Ref Range Beta-hCG Qual Negative Negative Urinalysis Result Value Ref Range Color, Urine Colorless Colorless, Yellow Clarity, Urine Clear Clear Specific Snyder 1.006 1.005 - 1.025 pH, Urine 7.0 5.0 - 7.0 Protein, Urine Negative Negative mg/dL Glucose, Urine Negative Negative mg/dL Ketones, Urine Trace (A) Negative mg/dL Bilirubin, Urine Negative Negative Urobilinogen, Urine <2.0 <2.0 mg/dL Blood, Urine Small (A) Negative Nitrite, Urine Negative Negative Leukocyte Esterase, Urine Moderate (A) Negative WBCs, Urine 3 0 - 5 /hpf RBCs, Urine 2 0 - 3 /hpf Bacteria, Urine Few (A) None Seen /hpf Squamous Epithelial 1 0 - 4 /hpf Renal Epithelial <1 (H) 0 - 0 /hpf CBC Auto Differential Result Value Ref Range WBC 7.67 4.50 - 11.00 K/mcL RBC 4.53 4.00 - 5.20 M/mcL Hemoglobin 13.3 12.0 - 16.0 g/dL Hematocrit 40.3 36.0 - 46.0 % MCV 89.0 80.0 - 100.0 fL MCH 29.4 26.0 - 34.0 pg MCHC 33.0 31.0 - 37.0 g/dL Platelets 318 150 - 400 K/mcL RDW - CV 12.6 11.6 - 14.8 % MPV 9.4 9.0 - 15.5 fL Neutrophils 58.6 % Lymphocytes 33.0 % Monocytes 6.9 % Eosinophils 0.5 % Basophils 0.7 % IG Percent 0.30 % Neutrophils Abs 4.50 1.70 - 7.00 K/mcL Lymphocytes Abs 2.53 0.90 - 4.00 K/mcL Monocytes Abs 0.53 0.30 - 0.90 K/mcL Eosinophils Abs 0.04 0.00 - 0.50 K/mcL Basophils Abs 0.05 0.00 - 0.30 K/mcL IG Absolute 0.02 0.00 - 0.30 K/mcL Nucleated RBC 0.0 % Nucleated RBC Abs 0.00 0.00 - 0.00 K/mcL CT Abdomen Pelvis With IV Contrast Only Non-public Result 1. No acute process in the abdomen or pelvis. 2. Gallstone noted.. 3. No evidence of bowel obstruction. Appendix is normal. Workstation ID: [id number] Procedures MDM The patient has been informed that they may have pre-hypertension or hypertension based on a blood pressure reading in the Emergency Department. I recommend that the patient call the primary care provider listed on their discharge instructions or a physician of their choice as soon as possible to arrange follow-up in the next 4 weeks for further evaluation of possible pre-hypertension or hypertension. . Clinical Impression: 1. RLQ abdominal pain ED Disposition ED Disposition Condition Comment Discharge Stable Madeline A Vannesa discharged to home/self care in stable condition. Follow-up Information 1. Kaley Dunaway MD. Specialty: Internal Medicine [phone] [facility] [id number] Contact information for after-discharge care Follow-up information has not been specified. Loreta Pena PA-C 08/13/19 1743 Per Loreta MATOS no covid testing or precautions at this time. PT STATES RIGHT SIDED ABDOMINAL PAIN RADIATING UNDER RIGHT RIBS STARTING 5 DAYS AGO WITH AN INCREASE IN PAIN TODAY. PY STATES NAUSEA DURING PAIN EPISODES BUT NO VOMITING.. PT ARRIVES TO ED WITH ABDOMINAL PAIN. Special isolation precautions are in place with signage outside this patient's room. This gericare aide performs hand hygiene and enters the patient room wearing: ? gloves ? an appropriately fitting (N-95, PAPR, Aura) mask ? face shield ? protective gown to provide care. See documentation for the care provided. documented in this encounter ED Attestation Note - Diane Goins DO - 08/13/2019 5:55 PM EDT Miscellaneous Notes (unrecog nized section and content) ED Attestation: I was personally available for consult in the emergency department. I have reviewed the chart and agree with the documentation as recorded by the CARLOS ENRIQUE (Advanced Practice Provider), including the assessment, treatment plan, and disposition documented in this encounter FOR RECORDS PERTAINING TO PATIENTS WHO ARE OR HAVE BEEN ENROLLED IN A CHEMICAL DEPENDENCY/SUBSTANCEABUSE PROGRAM, SOME INFORMATION MAY BE OMITTED. This clinical summary was aggregated from multiple sources. Caution should be exercised in using it in the provision of clinical care. This summary normalizes information from multiple sources, and as a consequence, information in this document may materially change the coding, format and clinical context of patient data. In addition, data may be omitted in some cases. CLINICAL DECISIONS SHOULD BE BASED ON THE PRIMARY CLINICAL RECORDS. [facility] [employer] [facility]. provides no warranty or guarantee of the accuracy or completeness of information in this document.
[2023-04-14 06:16] VITALS: BP 140/71; PULSE 94; RESP 18; TEMP 36.6; O2SAT 100; BMI 23.3
[2023-04-14 06:26] LABS: Internal QC Validated? YES +Cl - CLEAR BKGD; Pregnancy, Urine Negative Negative
[2023-04-14] MEDS: Lactated Ringers 1,000 ML 15 ML IV (06:28)
--- NOTE | 2023-04-14 07:10 | H&P.OPEN ---
HPI - General General Date of Service: 04/14/23 HPI Narrative MADELINE LANDERS, is a 47 F who presents for screening. Patient denies any changes since her last office visit. office visit 03/04/23 [facility] HPI: 47-year-old female presents for colonoscopy due to screening. Patient has a history of IBS. Patient states she has bowel movements daily that are mostly normal. Patient does take Bentyl 3 times a day may occasionally have some crampy abdominal pain. Patient denies any family history of colon cancer. Patient never had previous colonoscopy. Patient denies any blood in her stool. [facility] Medical History (Updated 04/08/23 @ 15:28 by Lashanda Mclain) Abdominal pain Anxiety Asthma Back problem Constipation Gastric reflux Heartburn History of IBS Migraine headache Nausea Non-smoker Numbness and tingling Sciatica of left side Wears glasses Home Medications albuterol sulfate 90 mcg/actuation aerosol inhaler 2 puff inhalation Q4H PRN shortness of breath or wheezing 04/12/20 [History Last Taken Unknown] etonogestrel 0.12 mg-ethinyl estradiol 0.015 mg/24 hr vaginal ring 1 vag ring vaginal Q4W 04/12/20 [History Last Taken Unknown] montelukast 10 mg tablet 10 mg PO DAILY 04/12/20 [History Last Taken Unknown] vitamin B complex 1 tab PO DAILY PRN NERVE PAIN 04/12/20 [History Last Taken Unknown] dicyclomine 20 mg tablet See Rx Instructions .Route .COMPLEX #270 tabs 06/10/22 [Rx Last Taken Unknown] fluticasone propionate 110 mcg/actuation HFA aerosol inhaler (Flovent HFA) 2 inh inhalation Q12H PRN SOB 03/04/23 [History Last Taken Unknown] Allergy/AdvReac Type Severity Reaction Status Date / Time No Known Allergies Allergy Verified 04/14/23 06:15 Family History Father Arthritis CVA (cerebral vascular accident) High cholesterol Hypertension Mother Hypertension Surgical History (Updated 04/08/23 @ 15:28 by Lashanda Mclain) History of wisdom tooth extraction (~1997) No significant past surgical history Social History Smoking Status: Never smoker second hand exposure: No alcohol intake: current alcohol intake frequency: holidays/special occasions only substance use type: does not use caffeine: Yes what type of physical activity do you participate in: walking and aerobics frequency: 3-4 times per week Past Medical/Surgical History Planned Operation Planned Operative Procedure/s: CSCOPE Previous Hospitalizations/Surgeries HX Hospitalizations: No Any Problems With Anesthesia: No You/Your Family Experience Fever (Hyperthermia) With Anes: No Cholinesterase deficiency: No Cardiovascular Hx Hypertension: No Respiratory Hx Sleep Apnea: No Hx Respiratory Tract Infection/Cold (presently): Yes (02/27/2023 URI) Do You Snore Loudly (louder than talking or can be heard): Yes Do You Often Feel Tired/ Fatigued/ Sleepy Dring Daytime?: No Has Anyone Observed You Stop Breathing During Sleep?: No Result (for STOP score): Negative Smoking Status: Never smoker Neurological Does patient have nerve stimulator: No Miscellaneous Recent Exposure to Contagious Disease: No Allergies No Known Allergies Allergy (Verified 04/14/23 06:15) Discharge Is Pt Admitted From a Intermediate, or a Long Term: No After D/C, Where Do you Plan to Go: Return Home Vital Signs Vital Signs Vital Signs: 04/14/23 06:16 04/14/23 06:16 Temperature 98 F Temperature Source Temporal Pulse Rate 94 Respiratory Rate 18 Respiratory Pattern Normal Blood Pressure 140/71 H Blood Pressure Mean 94 Blood Pressure Source Monitor Blood Pressure Position Semi-Fowlers Blood Pressure Location Right Arm Pulse Ox 100 Oxygen Delivery Method Room Air Weight Weight: 145 lb Body Mass Index (BMI) 23.3 Physical Exam Const alert, oriented x3 and no apparent distress HEENT normocephalic and head/scalp atraumatic Resp normal respiratory effort Cardio regular rate GI soft to palpation and non-tender; Negative for non-distended Palpation: Negative for guarding Extremity no clubbing, cyanosis or edema Skin no rashes or lesions noted Neuro CN's II-XII intact bilaterally Psych mental status grossly normal Assessment & Plan Assessment/Plan (1) Screening for colon cancer: Surgery Risks - Colonoscopy I discussed with the patient the risks of the procedure: Yes Risks Include but are not Limited To: Risks include but are not limited to: Bleeding, perforation requiring further surgery, inability to complete colonoscopy requiring barium enema.
--- NOTE | 2023-04-14 07:30 | COLBX_PTH ---
PATHOLOGY RESULTS PATIENT: MADELINE LANDERS LOC: [facility] [place] U#:[id number] AGE/SX: 47/F ROOM: RE04/14/[address]: Dr. Veronica Olivo MD : 1975 BED: DIS: 04/14/2023 SPEC #: [id number] RECD: 04/14/23 12:02 STATUS: GULSHAN ISIDRO #: [id number] GENNARO: 04/14/23 07:[address]: Veronica Olivo DEPT: SURGICAL PATHOLOGY RECD BY: Debby Jameson ENTERED: 04/14/23 12:02 SP TYPE: COLON BX OTHR DR: Dr. Kaley Dunaway MD Tissues: COLON BIOPSY Procedures: Surgery Specimen Level IV HEADER OPERATION: Colonoscopy with biopsy PRE-OP DIAGNOSIS: Screening for colon cancer TISSUE SUBMITTED: Hepatic flexure MICROSCOPIC DIAGNOSIS Colon at hepatic flexure, biopsy: Tubular adenoma. AM:ellen 04/15/2023 MICROSCOPIC DESCRIPTION Slides are reviewed. GROSS DESCRIPTION Received in fixative is one container labeled with the patient's name and designated hepatic flexure. The specimen consists of two irregular fragments of light wheeler soft tissue that in aggregate measure 0.6 x 0.3 x 0.1 cm. The specimen is totally submitted in one cassette. / SJ:rg 04/14/2023 TC:5 CPT: 32480
[2023-04-14 07:55] VITALS: BP 140/71; BP 98/61; PULSE 80; RESP 16; TEMP 36.4; O2SAT 100
--- NOTE | 2023-04-14 07:55 | OP.COLON_ITS ---
Patient Name: Lelo Granado Procedure Date: 04/14/2023 7:21 AM Date of : 1975 Age: 47 Procedure: Colonoscopy Indications: Screening for colorectal malignant neoplasm Providers: Veronica Olivo MD Medicines: Monitored Anesthesia Care Patient Profile: This is a 47 year old female. Last Colonoscopy: none. The patient's first colonoscopy is today. Complications: No immediate complications. Procedure: Pre-Anesthesia Assessment: - Prior to the procedure, a History and Physical was performed, and patient medications and allergies were reviewed. The patient's tolerance of previous anesthesia was also reviewed. The risks and benefits of the procedure and the sedation options and risks were discussed with the patient. All questions were answered, and informed consent was obtained. Prior Anticoagulants: The patient has taken no anticoagulant or antiplatelet agents. ASA Grade Assessment: Per anesthesia. After reviewing the risks and benefits, the patient was deemed in satisfactory condition to undergo the procedure. After I obtained informed consent, the scope was passed under direct vision. Throughout the procedure, the patient's blood pressure, pulse, and oxygen saturations were monitored continuously. The colonoscope was introduced through the anus and advanced to the cecum, identified by the appendiceal orifice, ileocecal valve and palpation. The colonoscopy was performed without difficulty. The patient tolerated the procedure well. The quality of the bowel preparation was good. Scope In: 7:33:32 AM Scope Withdrawal Time 0 hours 10 minutes 24 seconds Scope Out: 7:49:13 AM Total Procedure Duration Time 0 hours 15 minutes 41 seconds Findings: Hemorrhoids were found on perianal exam. Non-bleeding external and internal hemorrhoids were found. The hemorrhoids were small and Grade I (internal hemorrhoids that do not prolapse). A less than 5 mm polyp was found in the hepatic flexure. The polyp was sessile. The polyp was removed with a cold biopsy forceps. Resection and retrieval were complete. The exam was otherwise without abnormality. Impression: - Hemorrhoids found on perianal exam. - Non-bleeding external and internal hemorrhoids. - One less than 5 mm polyp at the hepatic flexure, removed with a cold biopsy forceps. Resected and retrieved. - The examination was otherwise normal. Recommendation: - Discharge patient to home. - Resume previous diet. - Continue present medications. - Await pathology results. - Repeat colonoscopy in 5 years for surveillance based on pathology results. Procedure Code(s): --- Professional --- 24754, PT, Colonoscopy, flexible; with biopsy, single or multiple Diagnosis Code(s): --- Professional --- Z12.11, Encounter for screening for malignant neoplasm of colon K64.0, First degree hemorrhoids D12.3, Benign neoplasm of transverse colon (hepatic flexure or splenic flexure) CPT copyright 2021 [employer]. All rights reserved. The codes documented in this report are preliminary and upon platen drier operator review may be revised to meet current compliance requirements. MD Veronica Perez MD 04/14/2023 7:55:32 AM This report has been signed electronically. Number of Addenda: 0 Note Initiated On: 04/14/2023 7:21 AM
--- NOTE | 2023-04-14 07:56 | OP.CCLET_ITS ---
04/14/2023 Kaley Dunaway [place] [id number] [address] Re : Colonoscopy procedure for Lelo Granado Dear Dr. Dunaway This procedure was performed on Friday, April 14, 2023. My impressions and recommendations are as follows: Impressions : - Hemorrhoids found on perianal exam. - Non-bleeding external and internal hemorrhoids. - One less than 5 mm polyp at the hepatic flexure, removed with a cold biopsy forceps. Resected and retrieved. - The examination was otherwise normal. Recommendations : - Discharge patient to home. - Resume previous diet. - Continue present medications. - Await pathology results. - Repeat colonoscopy in 5 years for surveillance based on pathology results. My findings are described in the full procedure note, which is enclosed. If I can be of further assistance, please feel free to contact me at Doctor phone number(s): , Work: . Sincerely, MD Veronica Perez MD 04/14/2023 7:55:32 AM This report has been signed electronically.
[2023-04-14 08:00] VITALS: BP 104/66; BP 140/71; PULSE 79; RESP 16; O2SAT 100
[2023-04-14 08:05] VITALS: BP 107/66; BP 140/71; PULSE 84; RESP 16; O2SAT 99
[2023-04-14 08:10] VITALS: BP 106/64; BP 140/71; PULSE 73; RESP 16; TEMP 36.8; O2SAT 100
[2023-04-14 08:33] VITALS: BP 140/71
== END 2023-04-14 08:52 | disposition home or self-care (01) ==
LOC: SDC 05:52 → AC 05:53
PROVIDERS: Anesthesiology; PCP Family Medicine; Referring Provider Family Medicine; Visit Provider Surgery
PROC: 0DJD8ZZ Inspection of Lower Intestinal Tract, Via Natural or Artificial Opening Endoscopic (ICD-10-PCS; CPT 45378; principal; 2023-04-14 07:25)
DX: Z12.11 Encounter for screening for malignant neoplasm of colon (principal); Z79.51 Long term (current) use of inhaled steroids; K64.4 Residual hemorrhoidal skin tags; K64.0 First degree hemorrhoids; D12.3 Benign neoplasm of transverse colon; J45.909 Unspecified asthma, uncomplicated
CPT/HCPCS: 45380; 81025; 88305; J7120; J2405